=== PATIENT | female | born 1975 | race Two or more races ===

== ENCOUNTER → 2020-08-17 14:46 | Outpatient (BNVA) | payer MEDICAID, SELFPAY | PROVIDERS: PCP Nurse Practitioner Family; Visit Provider Urology | DX: Z87.442 Personal history of urinary calculi (principal) | CPT/HCPCS: 99213 ==

== ENCOUNTER 2021-09-24 11:56 | Outpatient (REF) | payer MEDICAID, SELFPAY ==
--- NOTE | ~2021-09-24 | US_ITS ---
EXAMINATION: US RETROPERITONEAL LIMITED (RENAL ONLY) CLINICAL INFORMATION: Personal history of urinary calculi. COMPARISON: Renal ultrasound 08/10/2020 and 07/20/2019 TECHNIQUE: Real-time imaging of the kidneys. FINDINGS: RIGHT KIDNEY: 10.2 x 5.1 x 5.6 cm (SAG x AP x TRV). The kidney is normal in size, contour, and echogenicity. Renal cortical thickness is normal. No calculi or focal parenchymal lesions. No hydronephrosis. Linear echogenic foci are noted without evidence of any acoustic shadowing, likely represent vascular calcifications. LEFT KIDNEY: 10.0 x 5.2 x 6.0 cm (SAG x AP x TRV). The kidney is normal in size, contour, and echogenicity. Renal cortical thickness is normal. No calculi or focal parenchymal lesions. No hydronephrosis. Linear echogenic foci are noted without evidence of any acoustic shadowing, likely represent vascular calcifications. US/US renal BI IMPRESSION: Bilateral normal-sized kidneys and no evidence of any hydronephrosis or definite calculi, unchanged. Note is however made of linear echogenic foci seen within both renal sinuses, likely represent vascular calcifications.
== END 2021-09-24 11:57 | disposition home or self-care (01) ==
LOC: HO.US 11:56
PROVIDERS: Visit Provider Urology
DX: Z87.442 Personal history of urinary calculi (principal)
CPT/HCPCS: 76775

== ENCOUNTER → 2021-10-01 08:31 | Outpatient (BNVA) | payer MEDICAID, SELFPAY | PROVIDERS: PCP Registered Nurse Community Health | DX: Z87.442 Personal history of urinary calculi (principal) | CPT/HCPCS: 99212 ==

== ENCOUNTER 2022-09-11 13:37 | Outpatient (REF) | payer MEDICAID, SELFPAY ==
--- NOTE | ~2022-09-11 | US_ITS ---
EXAMINATION: US RETROPERITONEAL LIMITED (RENAL ONLY) CLINICAL INFORMATION: Personal history of urinary calculi. COMPARISON: Ultrasound retroperitoneal limited (renal only) 09/24/2021 and 08/10/2020. TECHNIQUE: Real-time imaging of the kidneys. FINDINGS: RIGHT KIDNEY: 9.8 x 4.8 x 5.9 cm (SAG x AP x TRV). The kidney is normal in size, contour, and echogenicity. Renal cortical thickness is normal. No calculi or focal parenchymal lesions. No hydronephrosis. LEFT KIDNEY: 10.3 x 5.1 x 4.6 cm (SAG x AP x TRV). The kidney is normal in size, contour, and echogenicity. Renal cortical thickness is normal. No calculi or focal parenchymal lesions. No hydronephrosis. US/US renal BI IMPRESSION: Unremarkable renal ultrasound.
== END 2022-09-11 13:38 | disposition home or self-care (01) ==
LOC: HO.US 13:37
DX: Z87.442 Personal history of urinary calculi (principal)
CPT/HCPCS: 76775

== ENCOUNTER 2023-01-24 09:03 | Outpatient (REF) | payer MEDICAID, SELFPAY ==
--- NOTE | ~2023-01-24 | XR_ITS ---
EXAMINATION: XR HIP, LEFT CLINICAL INFORMATION: Left hip pain COMPARISON: None TECHNIQUE: Two views of the left hip. FINDINGS: Minimal degenerative changes of the left hip. No acute osseous abnormality. Small calcifications project over the pelvis, likely representing phleboliths. Vascular stent projects over the left upper sacrum. XR/XR hip LT min 2V IMPRESSION: Minimal degenerative changes of the left hip.
== END 2023-01-24 09:04 | disposition home or self-care (01) ==
LOC: HO.XRAY 09:03
PROVIDERS: PCP Family Medicine; Visit Provider Family Medicine
DX: M25.552 Pain in left hip (principal)
CPT/HCPCS: 73502

== ENCOUNTER 2023-06-16 10:10 | Outpatient (REF) | payer MEDICAID, SELFPAY ==
[2023-06-16 11:39] LABS: MANUAL DIFF FLAG NO
[2023-06-16 11:54] LABS: Appearance Urine Turbid; Color Urine Red; Glucose Urine UA Negative (Negative); Leukocyte Esterase Urine Small (1+) (Negative); Nitrite Urine Negative (Negative); PH 6.5 (5.0-9.0); Specific Gravity - Urine 1.015 (1.005-1.025); UMIC TRIGGER UA YES; Urine Blood Large (3+) (Negative); Urine Ketones Negative (Negative); Urine Protein 100 (2+) mg/dL (Neg-Trace)
[2023-06-16 11:58] LABS: Bacteria Urine Trace (None Seen); Hyaline Casts Urine 0-2 /LPF (0-2); RBC Urine >20 /HPF (0-2)
[2023-06-16 12:03] LABS: Basophils Percent Auto 0.9 % (0-2); Eosinophils Absolute Auto 0.1 X10*3/uL (0.0-0.4); Eosinophils Percent Auto 2.1 % (0-4); Hematocrit 37.2 % (37.0-47.0); Hemoglobin 12.3 g/dl (12.0-16.0); Imm Gran Abs Auto 0.01 X10*3/uL (0.00-0.03); Imm Gran Pct Auto 0.3 % (0.0-0.4); Lymphocytes Absolute Auto 0.9 X10*3/uL (1.2-4.9); Lymphocytes Percent Auto 28.2 % (20-40); Mean Corpuscular HGB Conc 33.1 g/dl (31.0-35.0); Mean Corpuscular Hemoglobin 29.6 pg (27.0-33.0); Mean Corpuscular Volume 89.4 fL (80.0-98.0); Mean Platelet Volume 9.6 fL (9.4-12.3); Monocytes Absolute Auto 0.4 X10*3/uL (0.1-1.2); Monocytes Percent Auto 11.4 % (2-11); Neutrophils Absolute Auto 1.9 x10*3/uL (2.0-8.3); Neutrophils Percent Auto 57.1 % (45-73); Platelet Count 311 X10*3/uL (160-400); Red Blood Count 4.16 X10*6/uL (4.20-5.50); Red Cell Distribution Width 12.5 % (11.0-16.0); White Blood Count 3.3 X10*3/uL (4.8-10.8)
[2023-06-16 12:56] LABS: Alanine Aminotransferase 10 U/L (0-31); Albumin Level 4.1 g/dL (3.5-5.0); Alkaline Phosphatase 46 U/L (39-117); Anion Gap 15 (12-20); Aspartate Amino Transferase 16 U/L (5-31); Bilirubin Total 0.5 mg/dL (0.0-1.0); Blood Urea Nitrogen 9 mg/dL (9-16); Calcium 9.2 mg/dL (8.4-10.2); Carbon Dioxide 23 mmol/L (22-29); Chloride 107 mmol/L (96-108); Estimated Glomerular Filt Rate > 60; Glucose Random 90 mg/dL (60-115); Potassium 3.6 mmol/L (3.3-5.1); Sodium 141 mmol/L (135-145); Total Protein 7.2 g/dL (6.5-8.0)
[2023-06-16 13:22] LABS: Syphilis Screen Nonreactive (Nonreactive)
[2023-06-17 04:32] LABS: ~HepC Num1 0.08 S/CO (0.00-0.79); ~Hepatitis C Antibody Nonreactive (Nonreactive)
[2023-06-17 14:29] LABS: Absolute CD3 Count 734 cells/uL (840-3060); Absolute CD4 Count 394 cells/uL (490-1740); Absolute CD8 Count 346 cells/uL (180-1170); Absolute Lymphocytes 1003 cells/uL (850-3900); CD4 CD8 Ratio 1.14 (0.86-5.00); Percent CD3 Cells 73 % (57-85); Percent CD4 Cells 39 % (30-61); Percent CD8 Cells 34 % (12-42)
[2023-06-17 15:28] LABS: HIV RNA PCR Qn Copies NOT DETECTED copies/mL (NOT DETECTED); HIV RNA PCR Qn Log Copies NOT DETECTED (NOT DETECTED)
[2023-06-18 18:43] LABS: TS Negative Control Passed; TS Panel A 3; TS Panel B 1; TS Positive Control Passed; TSpotTB Negative (Negative)
== END 2023-06-16 10:11 | disposition home or self-care (01) ==
LOC: HO.HHCL 10:10
PROVIDERS: Visit Provider Internal Medicine
DX: B20 Human immunodeficiency virus [HIV] disease (principal)
CPT/HCPCS: 36415; 80053; 81001; 85025; 86359; 86360; 86481; 86780; 86803; 87536

== ENCOUNTER 2023-06-16 10:50 | Outpatient (REF) | payer MEDICAID, SELFPAY ==
--- NOTE | ~2023-06-16 | XR_ITS ---
EXAMINATION: XR SHOULDER, RIGHT CLINICAL INFORMATION: Pain COMPARISON: None available. TECHNIQUE: Four views of the right shoulder. FINDINGS: No acute visible fracture or dislocation. Joint spaces and alignment are maintained. Soft tissues are unremarkable. Visualized portions of the right chest are unremarkable. XR/XR shoulder RT min 2V IMPRESSION: No acute visible fracture or dislocation.
== END 2023-06-16 10:51 | disposition home or self-care (01) ==
LOC: HO.HHCX 10:50
PROVIDERS: Visit Provider Family Medicine
DX: M25.511 Pain in right shoulder (principal)
CPT/HCPCS: 73030

== ENCOUNTER 2023-09-23 10:27 | Outpatient (REF) | payer MEDICAID, SELFPAY ==
--- NOTE | ~2023-09-23 | US_ITS ---
EXAMINATION: US RETROPERITONEAL LIMITED (RENAL ONLY) CLINICAL INFORMATION: Personal history of urinary calculi. COMPARISON: Bilateral renal ultrasound dated 09/11/2022 TECHNIQUE: Real-time imaging of the kidneys. FINDINGS: RIGHT KIDNEY: 10.4 x 4.2 x 4.9 cm (SAG x AP x TRV). The kidney is normal in size, contour, and echogenicity. Renal cortical thickness is normal. No calculi or focal parenchymal lesions. No hydronephrosis. LEFT KIDNEY: 9.6 x 5.0 x 5.4 cm (SAG x AP x TRV). The kidney is normal in size, contour, and echogenicity. Renal cortical thickness is normal. No calculi or focal parenchymal lesions. No hydronephrosis. US/US renal BI IMPRESSION: No hydronephrosis or nephrolithiasis.
== END 2023-09-23 10:28 | disposition home or self-care (01) ==
LOC: HO.US 10:27
PROVIDERS: PCP Family Medicine; Visit Provider Urology
DX: Z87.442 Personal history of urinary calculi (principal)
CPT/HCPCS: 76775

== ENCOUNTER 2023-10-03 11:30 | Outpatient (AMB) | payer MEDICAID, SELFPAY ==
--- NOTE | 2023-10-03 11:53 | MHC.OFFVIS ---
Intake Intake Visit Reasons: 1 yr nephrolithiasis follow up with US Allergies No Known Allergies [No Known Allergies*] Allergy (Verified 10/01/21 08:34) HPI HPI Comments History of Present Illness Details Claudia is a 48-year-old female who presents today to the office for a follow-up. 10/03/2023? She is followed today for kidney stones and US results. She has seen CLIENT PROGRAM MANAGER, Nico Farias on 10/01/2021 for history of renal calculi. I reviewed the renal US results from 09/23/2023 revealed kidneys were WNL, negative for calculi or parenchymal lesions. She is on Losartan for high blood pressure. She states that it is a new medication and she does not remember the exact dose. She denies blood in the urine or recent renal colic symptoms. She does admit to drinking adequate amount of water and adding lemon to water. She has not been compliant with vitamin B 6, and states that she will start using daily. Plan: Follow-up in one year, renal US prior Vit B6 100 mg daily [facility] Medical History HTN (hypertension) Depression Gastritis Duodenitis History of kidney stones HIV (human immunodeficiency virus infection) Surgical History History of colonoscopy Family History Father ETOH abuse Epilepsy Mother HTN (hypertension) Maternal Aunt Diabetes Review of Systems Const All systems reviewed & are unremarkable except as noted in HPI and below Reports no additional complaints Eyes Reports no additional complaints ENT Reports no additional complaints Card Denies dyspnea Resp Denies cough and Denies dyspnea GI Reports no additional complaints Reports no additional complaints Musc Reports no additional complaints Skin/Breast Denies rash and Denies unusual bruising Neuro Reports no additional complaints Psych Reports no additional complaints Endo Reports no additional complaints Raffaele/Lymph Reports no additional complaints Aller/Immun Reports no additional complaints Physical Exam Const General: cooperative, healthy appearing, well developed and well groomed Nutritional Appearance: average body habitus and well nourished Orientation/consciousness: patient oriented x3 Limitations: no limitations HEENT Head: Yes normocephalic Ears: hearing grossly normal bilaterally Eyes General: appearance normal, both eyes and all related structures Neck Neck: Yes normal visual inspection Chest Chest palpation & inspection: normal inspection of the chest Resp Effort & Inspection: normal respiratory effort and no cough Cardio Jugular venous distension: no JVD Neuro General: patient oriented x3 and moves all extremities Cognition (Neuro): normal cognition Gait exam (Neuro): Normal gait present Psych Appearance: grossly normal and well kempt Mental Status: mental status grossly normal Speech and movement: Normal speech and movement present Affect: normal affect Attitude: cooperative Thought process: Normal thought process present Thought content: Normal thought content present Insight: Good insight present (Psych) Judgement: Good judgement present (Psych) Results Reviewed Results Reviewed: Date of Service: 09/23/23 EXAMINATION: US RETROPERITONEAL LIMITED (RENAL ONLY) CLINICAL INFORMATION: Personal history of urinary calculi. COMPARISON: Bilateral renal ultrasound dated 09/11/2022 FINDINGS: RIGHT KIDNEY: 10.4 x 4.2 x 4.9 cm (SAG x AP x TRV). The kidney is normal in size, contour, and echogenicity. Renal cortical thickness is normal. No calculi or focal parenchymal lesions. No hydronephrosis. LEFT KIDNEY: 9.6 x 5.0 x 5.4 cm (SAG x AP x TRV). The kidney is normal in size, contour, and echogenicity. Renal cortical thickness is normal. No calculi or focal parenchymal lesions. No hydronephrosis. IMPRESSION: No hydronephrosis or nephrolithiasis Assessment & Plan Assessment & Plan (1) History of renal calculi: Code(s): Z87.442 - Personal history of urinary calculi Plan Follow-up in one year, renal US prior Vit B6 100 mg daily Orders: Orders US renal BI 11 Months Z87.442 - Personal history of urinary calculi Patient Instructions: The patient had an opportunity to ask questions regarding treatment plan. All questions were answered. Imaging, Laboratory studies and physical exam results were discussed and reviewed in detail. No major barriers to understanding were identified. The patient expressed understanding and agreement with the above treatment plan. The patient is aware they should contact our office by phone for worsening of their current condition or the appearance of new symptoms. Compliance is encouraged with any medications and followup testing that is ordered. It is a privilege to be allowed the opportunity to participate in the urologic care of your patient. If you have any questions or concerns regarding treatment for the above conditions please do not hesitate to contact me. The office telephone contact is [phone]. This note is constructed in part using voice recognition software. While every effort has been made to ensure accuracy squeezer operator errors may have been included. Yours sincerely, Franklin Mcmahon MD Coding Level of Care Code Est Pt Level 3 (03931) Diagnoses History of renal calculi Z87.442
== END 2023-10-03 12:32 | disposition home or self-care (01) ==
PROVIDERS: Referring Provider Family Medicine; Visit Provider Urology
DX: Z87.442 Personal history of urinary calculi (principal)
CPT/HCPCS: 99213

== ENCOUNTER → 2023-10-03 11:30 | Outpatient (BNVA) | payer MEDICAID, SELFPAY | PROVIDERS: Visit Provider Urology | DX: Z87.442 Personal history of urinary calculi (principal) | CPT/HCPCS: 99212 ==

== ENCOUNTER 2023-12-18 09:44 | Outpatient (REF) | payer MEDICAID, SELFPAY ==
[2023-12-18 11:18] LABS: MANUAL DIFF FLAG NO
[2023-12-18 11:23] LABS: Basophils Percent Auto 0.5 % (0-2); Eosinophils Absolute Auto 0.1 X10*3/uL (0.0-0.4); Eosinophils Percent Auto 2.3 % (0-4); Hematocrit 36.8 % (37.0-47.0); Hemoglobin 12.5 g/dl (12.0-16.0); Imm Gran Abs Auto 0.02 X10*3/uL (0.00-0.03); Imm Gran Pct Auto 0.5 % (0.0-0.4); Lymphocytes Absolute Auto 1.2 X10*3/uL (1.2-4.9); Lymphocytes Percent Auto 26.9 % (20-40); Mean Corpuscular Hemoglobin 30.3 pg (27.0-33.0); Mean Corpuscular Volume 89.1 fL (80.0-98.0); Mean Platelet Volume 9.5 fL (9.4-12.3); Monocytes Absolute Auto 0.4 X10*3/uL (0.1-1.2); Monocytes Percent Auto 9.7 % (2-11); Neutrophils Absolute Auto 2.6 x10*3/uL (2.0-8.3); Neutrophils Percent Auto 60.1 % (45-73); Platelet Count 318 X10*3/uL (160-400); Red Blood Count 4.13 X10*6/uL (4.20-5.50); Red Cell Distribution Width 12.9 % (11.0-16.0); White Blood Count 4.3 X10*3/uL (4.8-10.8)
[2023-12-18 11:53] LABS: Alanine Aminotransferase 11 U/L (0-31); Albumin Level 4.2 g/dL (3.5-5.0); Alkaline Phosphatase 54 U/L (39-117); Anion Gap 11 (12-20); Aspartate Amino Transferase 16 U/L (5-31); Bilirubin Total 0.3 mg/dL (0.0-1.0); Blood Urea Nitrogen 7 mg/dL (9-16); Calcium 9.2 mg/dL (8.4-10.2); Carbon Dioxide 27 mmol/L (22-29); Chloride 106 mmol/L (96-108); Cholesterol 198 mg/dL (<200); Estimated Glomerular Filt Rate > 60; Glucose Random 104 mg/dL (60-115); HDL Cholesterol 61 mg/dL (>40); LDL Cholesterol Calculated 109 mg/dL (<100); Potassium 3.5 mmol/L (3.3-5.1); Sodium 140 mmol/L (135-145); Total Protein 7.8 g/dL (6.5-8.0); Triglycerides 142 mg/dL (<150)
[2023-12-18 12:02] LABS: Reflex LDLD? No
[2023-12-19 13:09] LABS: Absolute CD3 Count 907 cells/uL (840-3060); Absolute CD4 Count 451 cells/uL (490-1740); Absolute CD8 Count 462 cells/uL (180-1170); Absolute Lymphocytes 1199 cells/uL (850-3900); CD4 CD8 Ratio 0.98 (0.86-5.00); Percent CD3 Cells 76 % (57-85); Percent CD4 Cells 38 % (30-61); Percent CD8 Cells 38 % (12-42)
[2023-12-20 12:53] LABS: HIV RNA PCR Qn Copies NOT DETECTED copies/mL (NOT DETECTED); HIV RNA PCR Qn Log Copies NOT DETECTED (NOT DETECTED)
== END 2023-12-18 09:45 | disposition home or self-care (01) ==
LOC: HO.HHCL 09:44
PROVIDERS: Visit Provider Internal Medicine
DX: B20 Human immunodeficiency virus [HIV] disease (principal)
CPT/HCPCS: 36415; 80053; 80061; 85025; 86359; 86360; 87536

== ENCOUNTER 2024-05-12 11:02 | Outpatient (REF) | payer MEDICAID, SELFPAY ==
[2024-05-12 14:12] LABS: MANUAL DIFF FLAG NO
[2024-05-12 14:18] LABS: Eosinophils Absolute Auto 0.1 X10*3/uL (0.0-0.4); Hematocrit 37.8 % (37.0-47.0); Hemoglobin 12.5 g/dl (12.0-16.0); Imm Gran Abs Auto 0.01 X10*3/uL (0.00-0.03); Imm Gran Pct Auto 0.3 % (0.0-0.4); Lymphocytes Percent Auto 33.7 % (20-40); Mean Corpuscular HGB Conc 33.1 g/dl (31.0-35.0); Mean Corpuscular Hemoglobin 30.1 pg (27.0-33.0); Mean Corpuscular Volume 91.1 fL (80.0-98.0); Mean Platelet Volume 9.6 fL (9.4-12.3); Monocytes Absolute Auto 0.4 X10*3/uL (0.1-1.2); Monocytes Percent Auto 13.4 % (2-11); Neutrophils Absolute Auto 1.5 x10*3/uL (2.0-8.3); Neutrophils Percent Auto 49.6 % (45-73); Platelet Count 301 X10*3/uL (160-400); Red Blood Count 4.15 X10*6/uL (4.20-5.50); Red Cell Distribution Width 13.1 % (11.0-16.0); White Blood Count 3.1 X10*3/uL (4.8-10.8)
[2024-05-12 14:40] LABS: HCG Quantitative < 2 mIU/mL
[2024-05-12 14:47] LABS: HIV Num 1 196.38 S/CO (0.00-0.99)
[2024-05-12 14:49] LABS: Syphilis Screen Nonreactive (Nonreactive)
[2024-05-12 16:34] LABS: CT PCR NOT DETECTED (Not Detect.); NG PCR NOT DETECTED (Not Detect.)
[2024-05-13 10:10] LABS: HIV AB/AG Reactive (Nonreactive); HIV Num 2 208.72 S/CO; HIV Num 3 216.84 S/CO
[2024-05-17 18:23] LABS: HIV 1 Antibody POSITIVE (NEGATIVE); HIV 2 Antibody NEGATIVE (NEGATIVE)
== END 2024-05-12 11:03 | disposition home or self-care (01) ==
LOC: HO.CHCLDS 11:02
PROVIDERS: Visit Provider Family Medicine
DX: Z11.3 Encounter for screening for infections with a predominantly sexual mode of transmission (principal)
CPT/HCPCS: 36415; 84702; 85025; 86701; 86702; 86780; 87389; 87491; 87591

== ENCOUNTER 2024-06-11 10:35 | Outpatient (REF) | payer MEDICAID, SELFPAY ==
[2024-06-11 14:05] LABS: MANUAL DIFF FLAG NO
[2024-06-11 14:13] LABS: Basophils Percent Auto 0.7 % (0-2); Eosinophils Absolute Auto 0.1 X10*3/uL (0.0-0.4); Eosinophils Percent Auto 3.4 % (0-4); Hematocrit 36.9 % (37.0-47.0); Hemoglobin 12.1 g/dl (12.0-16.0); Imm Gran Abs Auto 0.01 X10*3/uL (0.00-0.03); Imm Gran Pct Auto 0.3 % (0.0-0.4); Lymphocytes Absolute Auto 1.3 X10*3/uL (1.2-4.9); Lymphocytes Percent Auto 42.5 % (20-40); Mean Corpuscular HGB Conc 32.8 g/dl (31.0-35.0); Mean Corpuscular Hemoglobin 29.3 pg (27.0-33.0); Mean Corpuscular Volume 89.3 fL (80.0-98.0); Mean Platelet Volume 9.6 fL (9.4-12.3); Monocytes Absolute Auto 0.4 X10*3/uL (0.1-1.2); Monocytes Percent Auto 14.6 % (2-11); Neutrophils Absolute Auto 1.1 x10*3/uL (2.0-8.3); Neutrophils Percent Auto 38.5 % (45-73); Platelet Count 288 X10*3/uL (160-400); Red Blood Count 4.13 X10*6/uL (4.20-5.50); Red Cell Distribution Width 12.5 % (11.0-16.0); White Blood Count 2.9 X10*3/uL (4.8-10.8)
[2024-06-11 14:32] LABS: Alanine Aminotransferase 15 U/L (0-31); Albumin Level 4.2 g/dL (3.5-5.0); Alkaline Phosphatase 54 U/L (39-117); Anion Gap 11 (12-20); Aspartate Amino Transferase 20 U/L (5-31); Bilirubin Total 0.4 mg/dL (0.0-1.0); Blood Urea Nitrogen 9 mg/dL (9-16); Calcium 9.7 mg/dL (8.4-10.2); Carbon Dioxide 28 mmol/L (22-29); Chloride 107 mmol/L (96-108); Estimated Glomerular Filt Rate > 60; Glucose Random 87 mg/dL (60-115); Potassium 3.9 mmol/L (3.3-5.1); Sodium 142 mmol/L (135-145); Total Protein 7.6 g/dL (6.5-8.0)
[2024-06-11 16:01] LABS: HBS Num1 21.93 mIU/mL (0-7.99); HBc Num1 0.07 S/CO (0.00-0.79); HBsAGNum1 0.28 S/CO (0.00-0.99); Hepatitis B Core Antibody Nonreactive (Nonreactive); Hepatitis B Surface Antigen Negative (Negative); ~HepC Num1 0.14 S/CO (0.00-0.79); ~Hepatitis B Surface Antibody REACTIVE (Nonreactive); ~Hepatitis C Antibody Nonreactive (Nonreactive)
[2024-06-11 16:04] LABS: Hepatitis A Antibody IgG REACTIVE (Nonreactive)
[2024-06-13 19:39] LABS: TS Negative Control Passed; TS Panel A 0; TS Panel B 0; TS Positive Control Passed; TSpotTB Negative (Negative)
[2024-06-15 14:48] LABS: HIV RNA PCR Qn Copies 80 copies/mL (NOT DETECTED)
[2024-06-15 18:38] LABS: Absolute CD3 Count 941 cells/uL (840-3060); Absolute CD4 Count 464 cells/uL (490-1740); Absolute CD8 Count 475 cells/uL (180-1170); Absolute Lymphocytes 1197 cells/uL (850-3900); CD4 CD8 Ratio 0.98 (0.86-5.00); Percent CD3 Cells 79 % (57-85); Percent CD4 Cells 39 % (30-61); Percent CD8 Cells 40 % (12-42)
== END 2024-06-11 10:36 | disposition home or self-care (01) ==
LOC: HO.CHCLDS 10:35
PROVIDERS: Visit Provider Internal Medicine
DX: B20 Human immunodeficiency virus [HIV] disease (principal)
CPT/HCPCS: 36415; 80053; 85025; 86359; 86360; 86481; 86704; 86706; 86708; 86803; 87340; 87536

== ENCOUNTER 2024-09-02 07:38 | Outpatient (REF) | payer MEDICAID, SELFPAY ==
--- NOTE | ~2024-09-02 | US_ITS ---
EXAMINATION: US RETROPERITONEAL LIMITED (RENAL ONLY) CLINICAL INFORMATION: Personal history of urinary calculi. COMPARISON: Ultrasound dated September 11, 2022. TECHNIQUE: Real-time ultrasound of the kidneys using grayscale and color Doppler technique. FINDINGS: Submitted for interpretation on October 01, 2024. RIGHT KIDNEY: 11 x 5 x 6 cm. cm (SAG x AP x TRV). Volume is 155 cc. Normal echotexture. Normal renal cortical thickness. No solid or cystic lesion. Normal flow on color Doppler interrogation of the renal hilum. LEFT KIDNEY: 10 x 5 x 5 cm (SAG x AP x TRV). Volume is 125 cc. Normal echotexture. Normal renal cortical thickness. No solid or cystic lesion. Normal flow on color Doppler interrogation of the renal hilum. US/US renal BI IMPRESSION: No hydronephrosis. Normal exam. Electronically signed by: Mele Wade MD 10/01/2024 08:56 AM EST
== END 2024-09-02 07:39 | disposition home or self-care (01) ==
LOC: HO.US 07:38
PROVIDERS: PCP Family Medicine; Visit Provider Urology
DX: Z87.442 Personal history of urinary calculi (principal)
CPT/HCPCS: 76775

== ENCOUNTER → 2024-09-02 07:42 | Outpatient (BNV) | payer MEDICAID, SELFPAY | PROVIDERS: PCP Family Medicine; Visit Provider Radiology Diagnostic Radiology | DX: Z87.442 Personal history of urinary calculi (principal) | CPT/HCPCS: 76775 ==

== ENCOUNTER 2024-10-01 09:03 | Outpatient (AMB) | payer MEDICAID, SELFPAY ==
--- NOTE | 2024-10-01 09:19 | A.OFFVIS_ITS ---
Intake Visit Reasons: 1y/US(US Pending) Intake Note: Patient is present for 1Y/US Urology Medication:VITAMIN B6 Antibiotic Allergy:NONE Blood Thinner:ASPIRIN Highway Design Engineer Required: No Allergies No Known Allergies [No Known Allergies*] Allergy (Verified 10/01/24 09:22) HPI Comments Details: 10/01/24--Claudia is a 49-year-old female who presents today to the office for a follow-up. Claudia has been followed for kidney stones. Renal ultrasound 09/02/2024, discussed-no recurrent kidney stones. The patient states she has been making sure she drinks adequate fluids and also add lemon to her water. I have again reviewed with her diet recommendations to decrease risk of kidney stones and pamphlet was provided. Also patient will use [id number]-uldzkmz vitamin B6 100 mg daily. At this time we will follow-up on a p.r.n. basis. 10/03/2023? She is followed today for kidney stones and US results. She has seen LANDSCAPE CONTRACTOR, Nico Farias on 10/01/2021 for history of renal calculi. I reviewed the renal US results from 09/23/2023 revealed kidneys were WNL, negative for calculi or parenchymal lesions. She is on Losartan for high blood pressure. She states that it is a new medication and she does not remember the exact dose. She denies blood in the urine or recent renal colic symptoms. She does admit to drinking adequate amount of water and adding lemon to water. She has not been compliant with vitamin B 6, and states that she will start using daily. [facility] Medical History HTN (hypertension) Depression Gastritis Duodenitis History of kidney stones HIV (human immunodeficiency virus infection) Surgical History History of colonoscopy Family History Father ETOH abuse Epilepsy Mother HTN (hypertension) Maternal Aunt Diabetes Review of Systems Const All systems reviewed & are unremarkable except as noted in HPI and below Reports no additional complaints Eyes Reports no additional complaints ENT Reports no additional complaints Card Reports no additional complaints Resp Reports no additional complaints GI Reports no additional complaints Reports as per HPI Musc Reports no additional complaints Skin/Breast Reports system reviewed and no additional complaints, except as documented Neuro Reports no additional complaints Psych Reports no additional complaints Endo Reports no additional complaints Raffaele/Lymph Reports no additional complaints Aller/Immun Reports no additional complaints Results AMB Urinalysis, Automated UA Leukoctes 0 Papo/uL Last Edit by MONTANA Hess on 10/01/24 09:34 UA Nitrite Last Edit by Sandeep Casanova [facility] on 10/01/24 09:34 UA Urobilinogen 3.5 mg/dL Last Edit by Sandeep Casanova [facility] on 10/01/24 09:3 4 UA Protein 0 mg/dL Last Edit by Sandeep Casanova [facility] on 10/01/24 09:34 UA pH 6.5 Last Edit by Sandeep Casanova [facility] on 10/01/24 09:34 UA Blood 0 Domo/uL Last Edit by Snadeep Casanova [facility] on 10/01/24 09:34 UA Specific [place] 1.010 Last Edit by Sandeep Casanova [facility] on 10/01/24 09: 34 UA Ketone Negative Last Edit by Sandeep Casanova [facility] on 10/01/24 09:34 UA Bilirubin 0 mg/dL Last Edit by Sandeep Casanova [facility] on 10/01/24 09:34 UA Glucose 0 mg/dL Last Edit by Sandeep Casanova [facility] on 10/01/24 09:34 Results Reviewed Results Reviewed: Laboratory Last Values Urine pH (Auto) 6.5 10/01/24 09:33 Specific [place] (Auto) 1.010 10/01/24 09:33 Urine Protein (Auto) 0 mg/dL 10/01/24 09:33 Glucose (UA)(Auto) 0 mg/dL 10/01/24 09:33 Urine Ketones (Auto) Negative 10/01/24 09:33 Urine Blood (Auto) 0 Domo/uL 10/01/24 09:33 Urine Bilirubin (Auto) 0 mg/dL 10/01/24 09:33 Urine Urobilinogen (Auto) 3.5 mg/dL 10/01/24 09:33 Leukocyte Esterase (Auto) 0 Papo/uL 10/01/24 09:33 Date of Service: 09/02/24 US RETROPERITONEAL LIMITED (RENAL ONLY) CLINICAL INFORMATION: Personal history of urinary calculi. COMPARISON: Ultrasound dated September 11, 2022. TECHNIQUE: Real-time ultrasound of the kidneys using grayscale and color Doppler technique. FINDINGS: Submitted for interpretation on October 01, 2024. RIGHT KIDNEY: 11 x 5 x 6 cm. cm (SAG x AP x TRV). Volume is 155 cc. Normal echotexture. Normal renal cortical thickness. No solid or cystic lesion. Normal flow on color Doppler interrogation of the renal hilum. LEFT KIDNEY: 10 x 5 x 5 cm (SAG x AP x TRV). Volume is 125 cc. Normal echotexture. Normal renal cortical thickness. No solid or cystic lesion. Normal flow on color Doppler interrogation of the renal hilum. IMPRESSION: No hydronephrosis. Normal exam. Date of Service: 09/23/23 EXAMINATION: US RETROPERITONEAL LIMITED (RENAL ONLY) CLINICAL INFORMATION: Personal history of urinary calculi. COMPARISON: Bilateral renal ultrasound dated 09/11/2022 FINDINGS: RIGHT KIDNEY: 10.4 x 4.2 x 4.9 cm (SAG x AP x TRV). The kidney is normal in size, contour, and echogenicity. Renal cortical thickness is normal. No calculi or focal parenchymal lesions. No hydronephrosis. LEFT KIDNEY: 9.6 x 5.0 x 5.4 cm (SAG x AP x TRV). The kidney is normal in size, contour, and echogenicity. Renal cortical thickness is normal. No calculi or focal parenchymal lesions. No hydronephrosis. IMPRESSION: No hydronephrosis or nephrolithiasis Assessment & Plan Assessment & Plan (1) History of renal calculi: Code(s): Z87.442 - Personal history of urinary calculi Category: Medical Plan Follow-up p.r.n. Orders: Orders AMB Urinalysis Automated Today Z13.9 - Encounter for screening, unspecified Patient Instructions: The patient had an opportunity to ask questions regarding treatment plan. The p atient expressed understanding and agreement with the above treatment plan. The patient is aware they should contact our office by phone for worsening of their current condition or the appearance of new symptoms. Compliance is encouraged with any medications and followup testing that is ordered. It is a privilege to be allowed the opportunity to participate in the urologic care of your patient. If you have any questions or concerns regarding treatment for the above conditions please do not hesitate to contact me. The office telephone contact is [phone]. This note is constructed in part using voice recognition software. While every effort has been made to ensure accuracy .net developer errors may have been included. Yours sincerely, Franklin Mcmahon MD Scribe Plan - Not visible on output: Scribed for Dr. Franklin Mcmahon by ledy rudd, medical director of hospice, 10/03/2023. I, Dr. Franklin Mcmahon, have personally reviewed and agree with the information entered by the scribe. Coding Level of Care Code Est Pt Level 3 (68016) Diagnoses History of renal calculi Z87.442
== END 2024-10-01 09:44 | disposition home or self-care (01) ==
PROVIDERS: PCP Family Medicine; Visit Provider Urology
DX: Z87.442 Personal history of urinary calculi (principal); Z13.9 Encounter for screening, unspecified
CPT/HCPCS: 99213

== ENCOUNTER → 2024-10-01 09:03 | Outpatient (BNVA) | payer MEDICAID, SELFPAY | PROVIDERS: PCP Family Medicine; Visit Provider Urology | DX: Z87.442 Personal history of urinary calculi (principal) | CPT/HCPCS: 81003; 99212 ==

== ENCOUNTER 2024-11-23 14:11 | Outpatient (REF) | payer MEDICAID, SELFPAY ==
[2024-11-24 14:25] LABS: HPV 16,18/45 See PAP report
[2024-12-02 23:53] LABS: HPV MRNA E6/E7 Rectal NOT DETECTED
== END 2024-11-23 14:12 | disposition home or self-care (01) ==
LOC: HO.HHCLNP 14:11
PROVIDERS: Visit Provider Family Medicine
DX: Z11.51 Encounter for screening for human papillomavirus (HPV) (principal)
CPT/HCPCS: 36415; 87624; 87626; 88112

== ENCOUNTER 2024-12-16 07:55 | Outpatient (REF) | payer MEDICAID, SELFPAY ==
--- OUTSIDE RECORDS SUMMARY | 2024-12-16 10:52 | XMS_ITS | Clinical Summary ---
Author Organization [facility] ity Address [address] [place] [address] Care Team Providers Care Population Geneticist Name Role Phone Pa Allison NP Primary Care Provider [phone] Social History Tobacco Use Types Packs/Day Years Used Date Smoking Tobacco: Former Smokeless Tobacco: Never Alcohol Use Standard Drinks/Week Comments No 0 (1 standard drink = 0.6 oz pur e alcohol) Sex and Gender Information Value Date Recorded Sex Assigned at Not on file Gender Identity Not on file Sexual Orientation Not on file Obstetrics History Plan of Treatment Health Maintenance Due Date Last Done Comments DTaP,Tdap,and Td Vaccines (1 - Tdap) 1993 Hepatitis B Vaccines (1 of 3 - 19+ 3-dose series) 1993 Cervical Cancer Screening: Pap Smear 1995 Colorectal Cancer Screening: Colonoscopy 10/20/2022 Depression Screening 10/20/2022 HIV Screening 10/20/2022 Hepatitis C Screening 10/20/2022 Social Influencers of Health Screening 10/20/2022 Zoster Vaccines (1 of 2) 2024 COVID-19 Vaccine ( season) 2024 Influenza Vaccine (#1) 2024 Breast Cancer Screening 06/28/2026 06/28/20 24, 06/23/2023, 06/23/2022, Additional history exists HIB Vaccines Aged Out No longer eligi ble based on patient's age to complete this topic HPV Vaccines Aged Out No longer eligi ble based on patient's age to complete this topic Hepatitis A Vaccines Aged Out No long er eligible based on patient's age to complete this topic IPV Vaccines Aged Out No longer eligi ble based on patient's age to complete this topic MMR Vaccines Aged Out No longer eligi ble based on patient's age to complete this topic Meningococcal ACWY Vaccine Aged Out N o longer eligible based on patient's age to complete this topic Pneumococcal Vaccine: Pediatrics (0 to 5 Years) and At-Risk Patients (6 to 64 Years) Aged Out No longer eligible based on patient's age to complete this topic RSV Immunization Patients Under 20 months Aged Out No longer eligible based on patient's age to complete this topic Varicella Vaccines Aged Out No longer eligible based on patient's age to complete this topic Procedures Procedure Name Priority Date/Time Associated Diagnosis Comments [facility] SCREENING DIGITAL Routine 06/28/2024 8:58 AM EDT Encounter for screening mammogram for malignant neoplasm of breast from Last 3 Months or Most Recently Relevant to Health Maintenance Results * [facility] SCREENING DIGITAL (06/28/2024 8:58 AM EDT) Anatomical Region Laterality Modality Mammography 06/28/2024 6:43 AM EDT Narrative 06/28/2024 8:[address] [facility] Diagnostic Imaging Department [address] [place], [place] [id number] Patient: ??CLAUDIA AMAYA ?/Age/Sex: 1975 - 49 - F Unit#: ??[id number] ? Location/Status: ??SPDIMAM/REG CLI ? Mnemonic/Ordering Site: ??DIGSC/SPMAM Ordering Physician: ??SARAH GRIFFITH MD Rea Screening Digital - 06/28/24 - 712 Report Status:Signed EXAM: [facility] Screening Digital EXAM DATE AND TIME: 06/28/2024 7:13 AM HISTORY: ??Screening. COMPARISON: ??06/23/23, 06/22/22, 06/14/21, 06/12/20 TECHNIQUE: Bilateral digital breast tomosynthesis was performed in the CC and MLO projections. Computer aided detection with [employer] 3D 3.1 was employed. TISSUE DENSITY: b. There are scattered areas of fibroglandular density. FINDINGS: No suspicious masses, grouped microcalcifications, or areas of architectural distortion are seen. The skin and vascularity are unremarkable. IMPRESSION: Stable mammographic appearance of the breasts. ??No evidence of malignancy is seen. A negative mammogram in the presence of a clinically suspicious palpable abnormality does not preclude the possibility of malignancy or alter the indications for biopsy. BI-RADS: ??Category 1: Negative RECOMMENDATION(S): 1: Routine screening mammogram BILATERAL in 1 year. Dictating Physician: ??RITU QUISPE MD Electronically Signed by: ??RITU QUISPE MD Dic Date/Time: ??06/28/24 0857 Sign date/Time: ??06/28/24 0858 Procedure Note Ritu Quispe MD - 09/01/2024 [facility] Diagnostic Imaging Department [address] [place] [address] Patient: AMAYACLAUDIA.O.B./Age/Sex: 1975 - 49 - F Unit#: [id number] Location/Status: SPDIMAM/REG CLI Mnemonic/Ordering Site: [facility] Ordering Physician: SARAH GRIFFITH MD Rea Screening Digital - 06/28/24 - 712 Report Status:Signed EXAM: [facility] Screening Digital EXAM DATE AND TIME: 06/28/2024 7:13 AM HISTORY: Screening. COMPARISON: 06/23/23, 06/22/22, 06/14/21, 06/12/20 TECHNIQUE: Bilateral digital breast tomosynthesis was performed in the CCand MLO projections. Computer aided detection with [employer] 3D 3.1was employed. TISSUE DENSITY: b. There are scattered areas of fibroglandular density. FINDINGS: No suspicious masses, grouped microcalcifications, or areas ofarchitectural distortion are seen. The skin and vascularity are unremarkable. IMPRESSION: Stable mammographic appearance of the breasts. No evidence of malignancyis seen. A negative mammogram in the presence of a clinically suspicious palpable abnormality does not preclude the possibility of malignancy or alter the indications for biopsy. BI-RADS: Category 1: Negative RECOMMENDATION(S): 1: Routine screening mammogram BILATERAL in 1 year. Dictating Physician: RITU QUISPE MD Electronically Signed by: RITU QUISPE MD Dic Date/Time: 06/28/24856 Sign date/Time: 06/28/24857 Sarah Griffith MD IMG BI PROCEDURES from Last 3 Months or Most Recently Relevant to Health Maintenance Care Teams Population Geneticist Relationship Specialty Start Date End Date Pa Allison NP [address] [place] [address] PCP - General Family Medicine 05/03/19
--- OUTSIDE RECORDS SUMMARY | 2024-12-16 10:52 | XMS_ITS | Clinical Summary ---
Author Organization [facility] Address [address] [place] [address] Care Team Providers Care Irrigationist Name Role Phone AmberadánPa Primary Care Provider Allergies No known active allergies Medications Medication Sig Dispensed Refills Start Date End Date Status zolpidem (AMBIEN) 5 MG tablet Take 5 mg by mouth every night at bedtime as needed for sleep. 0 Active acetaminophen (TYLENOL) 325 MG tablet Take 650 mg by mouth every 6 (six) hours as needed for pain. 0 Active albuterol (PROVENTIL HFA;VENTOLIN HFA) 108 (90 Base) MCG/ACT inhaler Inhale 2 puffs into the lungs every 6 (six) hours as needed for wheezing. 0 Active fluticasone (FLONASE) 50 MCG/ACT nasal spray spray/apply 1 spray in each nostril daily. 0 Active loratadine (CLARITIN) 10 MG tablet Take 10 mg by mouth daily. 0 Active bictegravir-emtricita bine-tenofovir (BIKTARVY) tablet 50-200-25 mg Take 1 tablet by mouth daily. 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 Acute deep vein thrombosis ( DVT) of femoral vein of left lower extremity 05/21/2019 Menorrhagia with irregular cycle 05/21/2019 Social History Tobacco Use Types Packs/Day Years Used Date Smoking Tobacco: Former Smokeless Tobacco: Never Alcohol Use Standard Drinks/Week Comments No 0 (1 standard drink = 0.6 oz pur e alcohol) Sex and Gender Information Value Date Recorded Sex Assigned at Not on file Gender Identity Not on file Sexual Orientation Not on file Last Filed Vital Signs Vital Sign Reading Time Taken Comments Blood Pressure 140/82 09/17/2021 10:28 AM EDT Pulse 74 09/17/2021 10:28 AM EDT Temperature 36.5 ??C (97.7 ??F) 09/17/2021 10:28 AM E DT Respiratory Rate - - Oxygen Saturation 98% 09/17/2021 10:28 AM EDT Inhaled Oxygen Concentration - - Weight 76.9 kg (169 lb 9.6 oz) 09/17/2021 10:28 AM EDT Height 154.9 cm (5' 1 ) 09/17/2021 10:28 AM EDT Body Mass Index 32.05 09/17/2021 10:28 AM EDT Plan of Treatment Health Maintenance Due Date Last Done Comments Hepatitis B Vaccines (1 of 3 - 3-dose series) 1975 Hepatitis C Screening 1975 COVID-19 Vaccine (#1) 1974 Depression Screening 1986 Preventative Health Evaluation 1992 DTap / Tdap / Td (1 - Tdap) 1993 Cervical Cancer Screening (P ap Smear) 1995 Colon Cancer Screening (Colonoscopy) 2019 Breast Cancer Screening (Mammogram) 2024 Shingrix-Zoster Vaccine (1 of 2) 2024 Influenza Vaccine (#1) 2024 Pneumococcal Vaccine Aged Out No long er eligible based on patient's age to complete this topic RSV Ped < 20 months Aged Out No longe r eligible based on patient's age to complete this topic Care Teams Irrigationist Relationship Specialty Start Date End Date Pa Allison [address] [place] [id number] PCP - General Family Medicine 05/03/19
[2024-12-16 11:19] LABS: Basophils Percent Auto 1.1 % (0-2); Eosinophils Absolute Auto 0.1 X10*3/uL (0.0-0.4); Eosinophils Percent Auto 3.2 % (0-4); Hematocrit 36.7 % (37.0-47.0); Hemoglobin 12.2 g/dl (12.0-16.0); Lymphocytes Absolute Auto 1.3 X10*3/uL (1.2-4.9); Lymphocytes Percent Auto 46.6 % (20-40); MANUAL DIFF FLAG SCAN; Mean Corpuscular HGB Conc 33.2 g/dl (31.0-35.0); Mean Corpuscular Hemoglobin 29.8 pg (27.0-33.0); Mean Corpuscular Volume 89.5 fL (80.0-98.0); Monocytes Absolute Auto 0.4 X10*3/uL (0.1-1.2); Monocytes Percent Auto 14.4 % (2-11); Neutrophils Percent Auto 34.7 % (45-73); Platelet Count 234 X10*3/uL (160-400); Red Cell Distribution Width 13.2 % (11.0-16.0); SCAN SMEAR FLAG 1; White Blood Count 2.8 X10*3/uL (4.8-10.8)
[2024-12-16 11:34] LABS: Alanine Aminotransferase 13 U/L (0-31); Alkaline Phosphatase 49 U/L (39-117); Anion Gap 6 (12-20); Aspartate Amino Transferase 20 U/L (5-31); Bilirubin Total 0.3 mg/dL (0.0-1.0); Blood Urea Nitrogen 9 mg/dL (9-16); Calcium 9.1 mg/dL (8.4-10.2); Carbon Dioxide 29 mmol/L (22-29); Chloride 112 mmol/L (96-108); Cholesterol 175 mg/dL (<200); Estimated Glomerular Filt Rate > 60; Glucose Random 98 mg/dL (60-115); HDL Cholesterol 55 mg/dL (>40); LDL Cholesterol Calculated 106 mg/dL (<100); Potassium 4.1 mmol/L (3.3-5.1); Sodium 143 mmol/L (135-145); Total Protein 7.5 g/dL (6.5-8.0); Triglycerides 71 mg/dL (<150)
[2024-12-16 11:36] LABS: Appearance Urine Clear; Color Urine Yellow; Glucose Urine UA Negative (Negative); Leukocyte Esterase Urine Negative (Negative); Nitrite Urine Negative (Negative); PH 5.5 (5.0-9.0); Specific Gravity - Urine 1.015 (1.005-1.025); Urine Blood Negative (Negative); Urine Ketones Negative (Negative); Urine Protein Negative (Neg-Trace)
[2024-12-16 11:39] LABS: Bacteria Urine Trace (None Seen); Hyaline Casts Urine 0-2 /LPF (0-2); RBC Urine 0-2 /HPF (0-2); SLIDE REVIEW VERIFIED; WBC Urine 0-5 /HPF (0-5)
[2024-12-16 11:47] LABS: Syphilis Screen Nonreactive (Nonreactive)
[2024-12-17 05:22] LABS: CT PCR NOT DETECTED (Not Detect.); NG PCR NOT DETECTED (Not Detect.)
[2024-12-18 15:13] LABS: HIV RNA PCR Qn Copies NOT DETECTED copies/mL (NOT DETECTED); HIV RNA PCR Qn Log Copies NOT DETECTED (NOT DETECTED)
[2024-12-22 14:28] LABS: Absolute CD3 Count 943 cells/uL (840-3060); Absolute CD4 Count 508 cells/uL (490-1740); Absolute CD8 Count 437 cells/uL (180-1170); Absolute Lymphocytes 1191 cells/uL (850-3900); CD4 CD8 Ratio 1.16 (0.86-5.00); Percent CD3 Cells 79 % (57-85); Percent CD4 Cells 43 % (30-61); Percent CD8 Cells 37 % (12-42)
== END 2024-12-16 07:56 | disposition home or self-care (01) ==
LOC: HO.HHCL 07:55
PROVIDERS: Family Medicine; Visit Provider Internal Medicine
DX: I10 Essential (primary) hypertension (principal); Z21 Asymptomatic human immunodeficiency virus [HIV] infection status
CPT/HCPCS: 36415; 80053; 80061; 81001; 85025; 86359; 86360; 86780; 87491; 87536; 87591

== ENCOUNTER 2025-03-02 10:27 | Outpatient (REF) | payer MEDICAID, SELFPAY ==
--- NOTE | ~2025-03-02 | XR_ITS ---
EXAMINATION: XR HAND 3 OR MORE VIEWS RIGHT HISTORY: PAIN COMPARISON: There are no prior studies available for comparison. FINDINGS: Three views of the right hand are submitted. Osseous mineralization is normal. There is no fracture or dislocation. The joint spaces are preserved. The soft tissues are unremarkable. XR/XR hand RT min 3V IMPRESSION: Unremarkable examination of the right hand. Electronically signed by: Noé Chacon MD 03/02/2025 10:56 AM EDT
--- OUTSIDE RECORDS SUMMARY | 2025-03-02 12:17 | XMS_ITS | Clinical Summary ---
Author Organization [facility] it Address [address] [place] [address] Care Team Providers Care Model And Mold Maker Plaster Name Role Phone Pa Allison NP Primary Care Provider [phone] Social History Tobacco Use Types Packs/Day Years Used Date Smoking Tobacco: Former Smokeless Tobacco: Never Alcohol Use Standard Drinks/Week Comments No 0 (1 standard drink = 0.6 oz pur e alcohol) Comments Unknown Sex and Gender Information Value Date Recorded Sex Assigned at Not on file Legal Sex Female 1:47 AM EST Gender Identity Not on file Sexual Orientation [...] 10/20/2022 Social Influencers of Health Screening 10/20/2022 Pneumococcal Vaccine: 50+ Years (1 of 1 - PCV) 2024 Zoster Vaccines (1 of 2) 2024 COVID-19 Vaccine (1 - 2023- season) 2024 Influenza Vaccine (Season Ended) 2025 Breast Cancer Screening 06/28/2026 06/28/20 24, 06/23/2023, [...] patient's age to complete this topic Meningococcal B Vaccine Aged Out No l onger eligible based on patient's age to complete [...] Procedure Name Priority Date/Time Associated Diagnosis Comments [facility] SCREENING DIGITAL Routine 06/28/2024 8:58 AM EDT Encounter for screening mammogram for malignant neoplasm of breast from Last 3 Months or Most Recently Relevant to Health Maintenance Results * [facility] SCREENING DIGITAL (06/28/2024 8:58 AM EDT) Anatomical Region Laterality Modality Mammography 06/28/2024 6:43 AM EDT Narrative 06/28/2024 8:58 AM EDT [facility] Diagnostic Imaging Department [address] [place] [address] Patient: ??CLAUDIA AMAYA ?/Age/Sex: 1975 - 49 - F Unit#: ??[id number] ? Location/Status: ??SPDIMAM/REG CLI ? Mnemonic/Ordering Site: ??DIGSC/SPMAM Ordering Physician: ??SARAH GRIFFITH MD [facility] Screening Digital - 06/28/24 - 712 Report Status:Signed EXAM: [facility] Screening Digital EXAM DATE AND TIME: 06/28/2024 7:13 AM HISTORY: ??Screening. COMPARISON: ??06/23/23, 06/22/22, 06/14/21, 06/12/20 TECHNIQUE: Bilateral digital breast tomosynthesis was performed in the CC and MLO projections. Computer aided detection with [employer] 3D 3.1 was employed. TISSUE DENSITY: b. [...] Procedure Note Ritu Quispe MD - 09/01/2024 [facility] Diagnostic Imaging Department [address] [place] [id number] Patient: CLAUDIA AMAYA/Age/Sex: 1975 - 49 - F Unit#: [id number] Location/Status: SPDIMAM/REG CLI Mnemonic/Ordering Site: DIGSC/SPMAM Ordering Physician: SARAH GRIFFITH MD [facility] Screening Digital - 06/28/24 - 712 Report Status:Signed EXAM: [facility] Screening Digital EXAM DATE AND TIME: 06/28/2024 7:13 AM HISTORY: Screening. COMPARISON: 06/23/23, 06/22/22, 06/14/21, 06/12/20 TECHNIQUE: Bilateral digital breast tomosynthesis was performed in the CCand MLO projections. Computer aided detection with [employer] 3D 3.1was employed. TISSUE DENSITY: b. There [...] Signed by: RITU QUISPE MD Dic Date/Time: 06/28/2457 Sign date/Time: 06/28/24857 us Sarah Griffith MD IMG BI PROCEDURES Final Resul t from Last 3 Months or Most Recently Relevant to Health Maintenance Care Teams Model And Mold Maker Plaster Relationship Specialty Start Date End Date Pa Allison NP [address] [place] [address] PCP - General Family Medicine 05/03/19
--- OUTSIDE RECORDS SUMMARY | 2025-03-02 12:17 | XMS_ITS | Clinical Summary ---
Author Organization [facility] Address [address] [place] [address] Care Team Providers Care Hand Inspector Name Role Phone AmberadánPa Primary Care Provider [phone] Allergies No known active allergies Medications Medication [...] age to complete this topic Care Teams Hand Inspector Relationship Specialty Start Date End Date Pa Allison [address] [place] [id number] PCP - General Family Medicine 05/03/19
== END 2025-03-02 10:28 | disposition home or self-care (01) ==
LOC: HO.HHCX 10:27
PROVIDERS: Visit Provider Emergency Medicine
DX: S69.91XA Unspecified injury of right wrist, hand and finger(s), initial encounter (principal); M79.641 Pain in right hand
CPT/HCPCS: 73130

== ENCOUNTER → 2025-03-02 10:29 | Outpatient (BNV) | payer MEDICAID, SELFPAY | PROVIDERS: Visit Provider Radiology Diagnostic Radiology | DX: M79.641 Pain in right hand (principal) | CPT/HCPCS: 73130 ==

== ENCOUNTER 2025-04-19 12:43 | Outpatient (AMB) | payer MEDICAID, SELFPAY ==
[2025-04-19 13:18] VITALS: BMI 34.2
--- NOTE | 2025-04-19 13:18 | A.OFFVIS_ITS ---
Vital Signs 04/19/25 13:18 Height 5 ft Weight 175 lb BMI 34.2 Intake Visit Reasons: ARMATURE WINDER: right hand pain s/p crush injury Intake Note: Nasra 50 yr old right hand dominant female presents today for her right hand middle finger. States while carrying a heavy box, the box turned over and crushed her hand on shelf. Seen at urgent care where where xrays were done and finger splinted. Currently states she has sharp pains and is not able to make a close fist. Denies numbness or tingling. Allergies No Known Allergies [No Known Allergies*] Allergy (Verified 04/19/25 13:18) [facility] Medical History HTN (hypertension) Depression Gastritis Duodenitis History of kidney stones HIV (human immunodeficiency virus infection) Surgical History History of colonoscopy Family History Father ETOH abuse Epilepsy Mother HTN (hypertension) Maternal Aunt Diabetes Social History (Updated 04/19/25 @ 13:21 by Susan Monroe [facility]) Current occupational status: disabled Current occupation: rt hand Physical Exam Vital Signs: BMI result Body Mass Index 34.2 Assessment & Plan Assessment & Plan (1) Stiffness of finger joint of right hand: Code(s): M25.641 - Stiffness of right hand, not elsewhere classified Category: Medical Plan History of Present Illness The patient is a 50-year-old female presenting with pain and decreased range of motion in the right middle finger. Her symptoms originated from an injury sustained in February while handling a heavy box, leading to a pinched hand. Subsequent x-rays showed no fractures, and a splint was initially applied. Over time, she reports stiffness and pain at the finger's joints, although nerve sens ation was unaffected. The splint was worn intermittently with attempts at finger exercises. She continues to experience significant stiffness impeding her household activities. The lack of pathological fracture or neurological impairment points toward stiffness from splint use as the primary issue. Review of Systems - Musculoskeletal: Reports pain and stiffness in the right middle finger. - Neurological: Denies sensory deficits or numbness in the right middle finger. Systems reviewed and are negative except as per HPI and below Physical Exam - Musculoskeletal- significantly limited range of motion in the right middle finger with intact flexor and extensor tendons. No evidence of tendon rupture or nerve injury. Full sensation maintained in the finger. Results - Tests and diagnostics: X-rays of the right hand (done previously) reported no fracture. Procedure Plan The plan for managing the right middle finger's stiffness and decreased motion involves a comprehensive rehabilitation approach. The patient will commence occupational therapy focusing on exercises that enhance finger mobility and reduce stiffness. Discontinuation of the splint is recommended to aid this process. Home exercises and the use of warm compresses are also advised to supplement the therapy. Follow-up in six weeks will assess improvement and guide further management. Patient was informed and verbally consented to the use of an ambient scribe for clinic note documentation during this visit. Discussion Notes After evaluating the patient, I explained that the stiffness in the right middle finger is likely due to sustained splint use rather than an identifiable fracture or nerve damage. We discussed the benefits of occupational therapy to improve finger mobility and restore function, emphasizing regular home exercises. I recommended discontinuing the splint and using heat modalities and analgesics for symptomatic relief. I provided a referral for occupational therapy and highlighted the importance of consistent engagement in the prescribed exercises. A follow-up appointment was scheduled in six weeks to monitor progress and adjust treatment if needed. Patient Instructions - Discontinue use of the splint on the right middle finger. - Begin exercises to improve finger flexibility, including passive stretching. - Use warm compresses or warm water baths on the hand to reduce stiffness. - Consider applying icy hot or similar topical creams for pain relief. - Schedule and attend occupational therapy sessions as recommended. - Return for a follow-up appointment in six weeks for reassessment. Orders: Orders XR hand RT min 3V 04/19/25 M79.641 - Pain in right hand OT Evaluation and Treatment 04/19/25 M25.641 - Stiffness of right hand, not elsewhere classified Coding Level of Care Code New Pt Level 3 (18146) Diagnoses Stiffness of finger joint of right hand M25.641
--- OUTSIDE RECORDS SUMMARY | 2025-04-19 14:02 | XMS_ITS | Clinical Summary ---
Author Organization [facility] Address [address] [place] [address] Care Team Providers Care Socket Welder Helper Name Role Phone AmberadánPa Primary Care Provider [phone] Allergies No known active allergies Medications Medication [...] Vaccine (1 of 2) 2024 Influenza Vaccine (Season Ended) 2025 Pneumococcal Vaccine Aged Out No long er eligible based on patient's age to complete this topic RSV Ped < 20 months Aged Out No longe r eligible based on patient's age to complete this topic Care Teams Socket Welder Helper Relationship Specialty Start Date End Date Pa Allison [address] [place] [id number] PCP - General Family Medicine 05/03/19
== END 2025-04-19 13:41 | disposition home or self-care (01) ==
LOC: HO.HOS 12:44
DX: M25.641 Stiffness of right hand, not elsewhere classified (principal)
CPT/HCPCS: 99203

== ENCOUNTER 2025-04-19 12:43 | Outpatient (REF) | payer MEDICAID, SELFPAY ==
--- NOTE | ~2025-04-19 | XR_ITS ---
EXAMINATION: XR HAND, RIGHT CLINICAL INFORMATION: M79.641 - Pain in right hand COMPARISON: March 02, 2025 TECHNIQUE: PA, lateral, and oblique views of the right hand. FINDINGS: Joint spaces are maintained. No erosive changes are identified. There is joint diastases. There is no carpal bone offset. There is 2 mm ulnar plus variance. There are no density changes in the adjacent lunate. XR/XR hand RT min 3V IMPRESSION: Unremarkable right hand aside from mild ulnar plus variant. Correlate for signs symptoms of ulnar lunate impaction syndrome. Electronically signed by: Luis Miguel Martínez MD 04/19/2025 04:37 PM EDT
== END 2025-04-19 12:44 | disposition home or self-care (01) ==
LOC: HO.HOSX 12:43
DX: M79.641 Pain in right hand (principal); M25.641 Stiffness of right hand, not elsewhere classified
CPT/HCPCS: 73130; 99212

== ENCOUNTER → 2025-04-19 13:01 | Outpatient (BNV) | payer MEDICAID, SELFPAY | PROVIDERS: Visit Provider Radiology Diagnostic Radiology | DX: S64.01XA Injury of ulnar nerve at wrist and hand level of right arm, initial encounter (principal) | CPT/HCPCS: 73130 ==

== ENCOUNTER 2025-06-02 08:29 | Outpatient (AMB) | payer MEDICAID, SELFPAY ==
[2025-06-02 08:32] VITALS: BMI 34.2
--- NOTE | 2025-06-02 08:32 | A.OFFVIS_ITS ---
Vital Signs 06/02/25 08:32 Height 5 ft Weight 175 lb BMI 34.2 Intake Visit Reasons: OV: right hand pain (ROM Check) s/p crush injury Intake Note: Claudia is a 50 year old right hand dominant female who presents today for a follow up visit for her right middle finger stiffness of joint s/p crush injury, DOI: ~ February 2025. At her last visit she was referred to occupational therapy. Patient reports she has not been able to start OT due to other family problems however she has been working on ROM. She is now able to make a fist although she is still experiencing stiffness. Denies numbness or tingling. Allergies No Known Allergies (No Known Allergies*) Allergy (Verified 06/02/25 08:37) HPI HPI OV: right hand pain (ROM Check) s/p crush injury: Details: Claudia is a 50 year old right hand dominant female who presents today for a follow up visit for her right middle finger stiffness of joint s/p crush injury, DOI: ~ February 2025. At her last visit she was referred to occupational therapy. Patient reports she has not been able to start OT due to other family problems however she has been working on ROM. She is now able to make a fist although she is still experiencing stiffness. Reports pain has improved dramatically since previous evaluation. Denies numbness or tingling. [facility] Medical History HTN (hypertension) Depression Gastritis Duodenitis History of kidney stones HIV (human immunodeficiency virus infection) Surgical History History of colonoscopy Family History Father ETOH abuse Epilepsy Mother HTN (hypertension) Maternal Aunt Diabetes Social History (Updated 04/19/25 @ 13:21 by Susan Monroe [facility]) Current occupational status: disabled Current occupation: rt hand Review of Systems Const All systems reviewed & are unremarkable except as noted in HPI and below Physical Exam Vital Signs: BMI result Body Mass Index 34.2 Extrem Other: Patient is alert, oriented, and in no acute distress. Neuro: Normal sensation of the tips of all digits of the right hand at this time Vascular: Cap refill brisk Pain: Minimal pain with range of motion of the right middle finger Minimal tenderness to palpation of the right middle finger, particularly at the DIP joint ROM: Patient is able to make a closed fist and extend all digits of the right hand fully and without difficulty Skin: No lacerations or abrasions. General: No ecchymosis, erythema, or evidence of infection. Psych: Appears grossly normal Affect normal Attitude cooperative Assessment & Plan Assessment & Plan (1) Stiffness of finger joint of right hand: Code(s): M25.641 - Stiffness of right hand, not elsewhere classified Category: Medical Plan 1. Stiffness of right middle finger Status post crush injury Patient appears to be recovering well from her injury Patient is educated about the typical recovery course At this time, patient is informed that I do not feel occupational therapy is necessary, as her range of motion and pain have both improved dramatically since previous evaluation Patient is educated that she should continue with working on range of motion, as well as her weight-bearing capacity No further active restrictions at this time Follow-up as needed Coding Level of Care Code Est Pt Level 3 (49599) Diagnoses Stiffness of finger joint of right hand M25.641
--- OUTSIDE RECORDS SUMMARY | 2025-06-02 08:34 | XMS_ITS | Clinical Summary ---
Author Organization [facility] ity Address [address] [place] [address] Care Team Providers Care Mc Kay Machine Operator Name Role Phone Pa Allison NP Primary Care Provider [phone] Social History Tobacco Use Types Packs/Day Years [...] on file Obstetrics History Plan of Treatment Upcoming Encounters Date Type Department Care Team (Late st Contact Info) Description 06/29/2025 7:15 AM EDT [facility]ment [facility] at [address] [address] Health Maintenance Due Date Last Done Comments [...] (1 - 2023- season) 2024 Influenza Vaccine (#1) 2025 Breast Cancer Screening 06/28/2026 06/28/20 24, [...] Procedure Name Priority Date/Time Associated Diagnosis Comments [facility] SCREENING DIGITAL Routine 06/28/2024 8:58 AM EDT Encounter for screening mammogram for malignant neoplasm of breast from Last 3 Months or Most Recently Relevant to Health Maintenance Results * [facility] SCREENING DIGITAL (06/28/2024 8:58 AM EDT) Anatomical Region Laterality Modality Mammography 06/28/2024 6:43 AM EDT Narrative 06/28/2024 8:[address] [facility] Diagnostic Imaging Department [address] [place] [address] Patient: CLAUDIA AMAYA D.O.B./Age/Sex: 1975 - 49 - F Unit#: [id number] [facility] CLI [facility] Order[facility] Physician: SARAH GRIFFITH MD [facility] Screening Digital - 06/28/24 - 13 Report Status:Signed EXAM: [facility] Screening Digital EXAM DATE AND TIME: 06/28/2024 7:13 AM HISTORY: Screening. COMPARISON: 06/23/23, 06/22/22, 06/14/21, 06/12/20 TECHNIQUE: Bilateral digital breast tomosynthesis was performed in the CC and MLO projections. Computer aided detection with [employer] 3D 3.1 was employed. TISSUE DENSITY: b. There are scattered areas of fibroglandular density. FINDINGS: No suspicious masses, grouped microcalcifications, or areas of architectural distortion are seen. The skin and vascularity are unremarkable. IMPRESSION: Stable mammographic appearance of the breasts. No evidence of malignancy is seen. A negative mammogram in the presence of a clinically suspicious palpable abnormality does not preclude the possibility of malignancy or alter the indications for biopsy. BI-RADS: Category 1: Negative RECOMMENDATION(S): 1: Routine screening mammogram BILATERAL in 1 year. Dictating Physician: RITU QUISPE MD Electronically Signed by: RITU QUISPE MD Dic Date/Time: 06/28/24856 Sign date/Time: 06/28/24857 Procedure Note Ritu Quispe MD - 09/01/2024 [facility] Diagnostic Imaging Department [address] [place] [address] Patient: CLAUDIA AMAYA /Age/Sex: 1975 - 49 - F Unit#: [id number] Location/Status: SPDIMAM/REG CLI [facility] Ordering Physician: SARAH GRIFFITH MD [facility] Screening Digital - 06/28/24 - 712 Report Status:Signed EXAM: [facility] Screening Digital EXAM DATE AND TIME: 06/28/2024 7:13 AM HISTORY: Screening. COMPARISON: 06/23/23, 06/22/22, 06/14/21, 06/12/20 TECHNIQUE: Bilateral digital breast tomosynthesis was performed in the CCand MLO projections. Computer aided detection with [employer] 3D 3.1was employed. TISSUE DENSITY: b. There [...] or Most Recently Relevant to Health Maintenance Insurance MEDICAID - [place] Care Teams Mc Kay Machine Operator Relationship Specialty Start Date End Date Pa Allison NP [address] [place], [place] PCP - General Family Medicine 05/03/19
== END 2025-06-02 08:45 | disposition home or self-care (01) ==
LOC: HO.HOS 08:30
DX: M25.641 Stiffness of right hand, not elsewhere classified (principal)
CPT/HCPCS: 99213

== ENCOUNTER → 2025-06-02 08:29 | Outpatient (BNVA) | payer MEDICAID, SELFPAY | DX: M25.641 Stiffness of right hand, not elsewhere classified (principal) | CPT/HCPCS: 99212 ==

== ENCOUNTER 2025-06-03 08:21 | Outpatient (REF) | payer MEDICAID, SELFPAY ==
--- OUTSIDE RECORDS SUMMARY | 2025-06-03 08:25 | XMS_ITS | Clinical Summary ---
Author Organization [facility] ity Address [address] [place] [address] Care Team Providers Care Sat Instructor Name Role Phone Pa Allison NP Primary Care Provider [phone] Social History Tobacco Use Types Packs/Day Years [...] AM EDT [facility]ment [facility] at [address] [address] Health Maintenance Due Date Last [...] Procedure Name Priority Date/Time Associated Diagnosis Comments [facility] SCREENING DIGITAL Routine 06/28/2024 8:58 AM EDT Encounter for screening mammogram for malignant neoplasm of breast from Last 3 Months or Most Recently Relevant to Health Maintenance Results * [facility] SCREENING DIGITAL (06/28/2024 8:58 AM EDT) Anatomical Region Laterality Modality Mammography 06/28/2024 6:43 AM EDT Narrative 06/28/2024 8:58 AM EDT [facility] Diagnostic Imaging Department [address] [place] [address] Patient: CLAUDIA AMAYA D.O.B./Age/Sex: 1975 - 49 - F Unit#: [id number] [facility] CLI [facility] Ordering Physician: SARAH GRIFFITH MD [facility] Screening Digital - 06/28/24 - 13 Report Status:Signed EXAM: [facility] Screening Digital EXAM DATE AND TIME: 06/28/2024 7:13 AM HISTORY: Screening. COMPARISON: 06/23/23, 06/22/22, 06/14/21, 06/12/20 TECHNIQUE: Bilateral digital breast tomosynthesis was performed in the CC and MLO projections. Computer aided detection with [employer] 3D 3.1 was employed. TISSUE DENSITY: b. [...] Procedure Note Ritu Quispe MD - 09/01/2024 [facility] Diagnostic Imaging Department [address] [place] [address] Patient: CLAUDIA AMAYA /Age/Sex: 1975 - 49 - F Unit#: [id number] Location/Status: SPDIMAM/REG CLI [facility] Ordering Physician: SARAH GRIFFITH MD [facility] Screening Digital - 06/28/24 - 712 Report Status:Signed EXAM: [facility] Screening Digital EXAM DATE AND TIME: 06/28/2024 7:13 AM HISTORY: Screening. COMPARISON: 06/23/23, 06/22/22, 06/14/21, 06/12/20 TECHNIQUE: Bilateral digital breast tomosynthesis was performed in the CCand MLO projections. Computer aided detection with [employer] 3D 3.1was employed. TISSUE DENSITY: b. There [...] Maintenance Insurance [place] - [place] Care Teams Sat Instructor Relationship Specialty Start Date End Date Pa Allison NP [address] [place], [place] PCP - General Family Medicine 05/03/19
--- OUTSIDE RECORDS SUMMARY | 2025-06-03 08:25 | XMS_ITS | Clinical Summary ---
Author Organization [facility] Address [address] [place] [address] Care Team Providers Care Scuba Diving Instructor Name Role Phone AmberadánPa Primary Care Provider [phone] Allergies No known active allergies Medications Medication [...] 73 09/17/2021 10:28 AM EDT Temperature 36.5 C (97.7 F) 09/17/2021 10:28 AM EDT Respiratory Rate - - Oxygen Saturation 98% [...] (1 of 2) 2024 Influenza Vaccine (#1) 2025 Pneumococcal Vaccine Aged Out No long er eligible based on patient's age to complete this topic RSV Ped < 20 months Aged Out No longe r eligible based on patient's age to complete this topic Care Teams Scuba Diving Instructor Relationship Specialty Start Date End Date Pa Allison [address] [place] [id number] PCP - General Family Medicine 05/03/19
[2025-06-03 11:22] LABS: MANUAL DIFF FLAG NO
[2025-06-03 11:30] LABS: Hematocrit 35.0 % (37.0-47.0); Hemoglobin 12.1 g/dl (12.0-16.0); Imm Gran Abs Auto 0.01 X10*3/uL (0.00-0.03); Imm Gran Pct Auto 0.3 % (0.0-0.4); Lymphocytes Absolute Auto 1.4 X10*3/uL (1.2-4.9); Mean Corpuscular HGB Conc 34.6 g/dl (31.0-35.0); Mean Corpuscular Hemoglobin 30.4 pg (27.0-33.0); Mean Corpuscular Volume 87.9 fL (80.0-98.0); NRBC Abs Auto 0.000 X10*3/uL (0.0-0.012); NRBC Pct Auto 0.0 /100WBC (0.0-0.2); Platelet Count 312 X10*3/uL (160-400); Red Blood Count 3.98 X10*6/uL (4.20-5.50); White Blood Count 3.9 X10*3/uL (4.8-10.8)
[2025-06-03 12:00] LABS: Alanine Aminotransferase 14 U/L (0-31); Albumin Level 4.3 g/dL (3.5-5.0); Alkaline Phosphatase 50 U/L (39-117); Anion Gap 11 (12-20); Aspartate Amino Transferase 24 U/L (5-31); Blood Urea Nitrogen 10 mg/dL (9-16); Calcium 9.4 mg/dL (8.4-10.2); Carbon Dioxide 27 mmol/L (22-29); Chloride 108 mmol/L (96-108); Estimated Glomerular Filt Rate > 60; Potassium 3.8 mmol/L (3.3-5.1); Sodium 142 mmol/L (135-145); Total Protein 7.4 g/dL (6.5-8.0)
[2025-06-03 12:32] LABS: ~HepC Num1 0.11 S/CO (0.00-0.79); ~Hepatitis C Antibody Nonreactive (Nonreactive)
[2025-06-06 16:49] LABS: TS Negative Control Passed; TS Panel A 1; TS Panel B 1; TS Positive Control Passed; TSpotTB Negative (Negative)
[2025-06-06 17:39] LABS: HIV RNA PCR Qn Copies NOT DETECTED copies/mL (NOT DETECTED); HIV RNA PCR Qn Log Copies NOT DETECTED (NOT DETECTED)
[2025-06-08 23:07] LABS: Absolute CD3 Count 1013 cells/uL (840-3060); Absolute CD8 Count 506 cells/uL (180-1170); Percent CD3 Cells 79 % (57-85); Percent CD8 Cells 39 % (12-42)
== END 2025-06-03 08:22 | disposition home or self-care (01) ==
LOC: HO.HHCL 08:21
PROVIDERS: Visit Provider Internal Medicine
DX: Z11.59 Encounter for screening for other viral diseases (principal); Z11.1 Encounter for screening for respiratory tuberculosis; Z21 Asymptomatic human immunodeficiency virus [HIV] infection status
CPT/HCPCS: 36415; 80053; 85025; 86359; 86360; 86481; 86803; 87536

== ENCOUNTER 2025-09-02 10:11 | Outpatient (REF) | payer MEDICAID, SELFPAY ==
--- NOTE | ~2025-09-02 | XR_ITS ---
EXAMINATION: XR SHOULDER 2 OR MORE VIEWS RIGHT, XR CLAVICLE RIGHT HISTORY: right shoulder pain, lifting injury, pain at lateral AC, clavicle, COMPARISON: Comparison is made with the prior examination dated 06/16/2023. FINDINGS: Four views of the right shoulder and 2 additional views of the right clavicle are submitted. Osseous mineralization is normal. There is no fracture or dislocation. The glenohumeral and acromioclavicular joint spaces are preserved. The soft tissues are unremarkable. XR/XR shoulder RT min 2V IMPRESSION: Unremarkable examination of the right shoulder and clavicle. Electronically signed by: Noé Chacon MD 09/02/2025 10:41 AM EDT
--- NOTE | ~2025-09-02 | XR_ITS ---
EXAMINATION: XR SHOULDER 2 OR MORE VIEWS RIGHT, XR CLAVICLE RIGHT HISTORY: right shoulder pain, lifting injury, pain at lateral AC, clavicle, COMPARISON: Comparison is made with the prior examination dated 06/16/2023. FINDINGS: Four views of the right shoulder and 2 additional views of the right clavicle are submitted. Osseous mineralization is normal. There is no fracture or dislocation. The glenohumeral and acromioclavicular joint spaces are preserved. The soft tissues are unremarkable. XR/XR clavicle RT IMPRESSION: Unremarkable examination of the right shoulder and clavicle. Electronically signed by: Noé Chacon MD 09/02/2025 10:41 AM EDT
--- OUTSIDE RECORDS SUMMARY | 2025-09-02 12:01 | XMS_ITS | Clinical Summary ---
Author Organization [facility] Address [address] [place] [address] Phone Care Team Providers Care Staking Technician Name Role Phone Clarissa Griffith MD Primary Care Provider Encounters Date Type Department Care Team Description 06/29/2025 6:51 AM EDT - 06/29/2025 11:59 PM EDT Hospital [facility]counter [facility] [address] [id number] Encounter for screening mammogram for breast cancer Discharge Disposition: Home or Self Care from Last 3 Months Social History Tobacco Use Types Packs/Day Years Used Date Smoking Tobacco: Former Smokeless Tobacco: Never Alcohol Use Standard Drinks/Week Comments No 0 (1 standard drink = 0.6 oz pur e alcohol) Comments No Sex and Gender Information Value Date Recorded Sex Assigned at Not on file Legal Sex Female 1:47 AM EST Gender Identity Not on file Sexual Orientation Not on file Obstetrics History Plan of Treatment Health Maintenance Due Date Last Done Comments Colorectal Cancer Screening: Colonoscopy 1974 Cervical Cancer Screening: Pap Smear 1995 Hepatitis B Vaccines (2 of 3 - 19+ 3-dose series) 01/29/2008 01/01/2008, 03/29/1997, 10/19/1996, Additional history exists Cholesterol Screening (Lipid Panel) 10/20/2022 HIV Screening 10/20/2022 Hepatitis C Screening 10/20/2022 Social Influencers of Health Screening 10/20/2022 RSV Immunization Adult Patients (1 - Risk 50-74 years 1-dose series) 2024 Depression Screening 11/17/2024 Hypertension/CHF/CAD Annual BMP Blood Test 06/29/2025 Influenza Vaccine (#1) 2025 5, 08/22/2023, 10/01/2022, Additional history exists Breast Cancer Screening 06/29/2027 06/29/20 25, 06/28/2024, 06/23/2023, Additional history exists Pneumococcal Vaccine: 50+ Years (3 of 3 - PCV20 or PCV21) 01/14/2029 01/15/2024, 07/23/2018, 05/21/2018, Additional history exists DTaP,Tdap,and Td Vaccines (5 - Td or Tdap) 10/02/2030 10/02/2020, 10/06/2012, 08/31/2003, Additional history exists IPV Vaccines Completed 04/13/1980, 02/16, 1974, Additional history exists MMR Vaccines Completed 08/29/1992 Hepatitis A Vaccines Aged Out 03/19/2001, 10/01/20 00 No longer eligible based on patient's age to complete this topic Meningococcal ACWY Vaccine Aged Out , 07/23/2018, 05/21/2018 No longer eligible based on patient's age to complete this topic Zoster Vaccines Completed 07/14/2024, 05/12/2024 COVID-19 Vaccine Completed 11/23/2024, , 01/13/2023, Additional history exists HIB Vaccines Aged Out [...] Procedure Name Priority Date/Time Associated Diagnosis Comments MG MAMMO DIGITAL SCREENING W LEOBARDO BILAT Routine 06/29/2025 7:30 AM EDT Encounter for screening mammogram for breast cancer from Last 3 Months Results * MG Mammo Digital Screening w Leobardo bilat (06/29/2025 7:30 AM EDT) Anatomical Region Laterality Modality Breast Bilateral Mammography 06/29/2025 8:51 AM EDT Impressions 06/29/2025 9:03 AM EDT Benign. BI-RADS CATEGORY: 1 - NEGATIVE RECOMMENDATION: Screening bilateral mammogram is recommended in 1 year. Mammo Location: [facility], [address] [place] [address], [id number], . -------- FINAL REPORT -------- Dictated By: Jorge Rasmussen Dictated Date: 06/29/2025 08:51 ET Assigned Physician: Jorge Rasmussen Reviewed and Electronically Signed By: Jorge Rasmussen Signed Date: 06/29/2025 09:03 ET Workstation ID: [id number] Transcribed By: Self Edit Transcribed Date: 06/29/2025 08:51 ET Narrative 06/29/2025 9:03 AM EDT CLINICAL: 50 years old, Female, routine annual exam. COMPARISON: 06/28/2024. TECHNIQUE: Bilateral MLO and CC views were obtained digitally with 3-D mammogram (digital breast tomosynthesis). Computer-aided detection was utilized in evaluation of this exam (CAD). FINDINGS: There is no evidence of suspicious mass or architectural distortion. No worrisome calcifications are evident. There has been no significant change from prior exam(s). BREAST DENSITY: B - There are scattered areas of fibroglandular density. Procedure Note Jorge Rasmussen MD - 06/29/2025 CLINICAL: 50 years old, Female, routine annual exam. COMPARISON: 06/28/2024. TECHNIQUE: Bilateral MLO and CC views were obtained digitally with 3-Dmammogram (digital breast tomosynthesis). Computer-aided detection wasutilized in evaluation of this exam (CAD). FINDINGS: There is no evidence of suspicious mass or architectural distortion. Noworrisome calcifications are evident. There has been no significantchange from prior exam(s). BREAST DENSITY: B - There are scattered areas of fibroglandular density. IMPRESSION: Benign. BI-RADS CATEGORY: 1 - NEGATIVE RECOMMENDATION: Screening bilateral mammogram is recommended in 1 year. Mammo Location: [facility], [address], [place], [address], . -------- FINAL REPORT -------- Dictated By: Jorge Rasmussen Dictated Date: 06/29/2025 08:51 ET Assigned Physician: Jorge Rasmussen Reviewed and Electronically Signed By: Jorge Rasmussen Signed Date: 06/29/2025 09:03 ET Workstation ID: [id number] Transcribed By: Self Edit Transcribed Date: 06/29/2025 08:51 ET us Self Referral [facility] IMG BI PROCEDURES Final Resul t from Last 3 Months Insurance MEDICAID - [place] Care Teams Staking Technician Relationship Specialty Start Date End Date Clarissa Griffith MD [address] [place] [address] PCP - General Family Medicine 06/29/25
--- OUTSIDE RECORDS SUMMARY | 2025-09-02 12:01 | XMS_ITS | Clinical Summary ---
Author Organization [facility] Address [address] [place] [address] Care Team Providers Care Mental Health Assistant Name Role Phone AmberadánPa Primary Care Provider [phone] Allergies No known active allergies Medications Medication [...] age to complete this topic Care Teams Mental Health Assistant Relationship Specialty Start Date End Date Pa Allison [address] [place] [id number] PCP - General Family Medicine 05/03/19
== END 2025-09-02 10:12 | disposition home or self-care (01) ==
LOC: HO.HHCX 10:11
PROVIDERS: PCP Family Medicine
DX: S49.91XA Unspecified injury of right shoulder and upper arm, initial encounter (principal)
CPT/HCPCS: 73000; 73030

== ENCOUNTER → 2025-09-02 10:17 | Outpatient (BNV) | payer MEDICAID, SELFPAY | PROVIDERS: PCP Family Medicine; Visit Provider Radiology Diagnostic Radiology | DX: M25.511 Pain in right shoulder (principal) | CPT/HCPCS: 73000; 73030 ==